=== PATIENT | male | born 1980 | race Caucasian/White ===

== ENCOUNTER 2021-02-06 21:09 | Emergency (ER) | payer BC ==
[~2021-02-06] VITALS: Ht 178 cm; Wt 72.0 kg
[2021-02-06] MEDS ORDERED: ALLO100T PO (21:30)
[2021-02-06] MEDS ORDERED: CARV6.25 PO (21:30)
[2021-02-06] MEDS ORDERED: ATOR20TA66 PO (21:30)
[2021-02-06] MEDS ORDERED: FOLI0.8C PO (21:30)
[2021-02-06] MEDS ORDERED: BUME0.5T5 PO (21:30)
[2021-02-06] MEDS ORDERED: OMEP10CA5 PO (21:30)
[2021-02-06] MEDS ORDERED: ASPI-999 PO (21:30)
[2021-02-06] MEDS ORDERED: POTA99TA21 PO (21:30)
[2021-02-06] MEDS ORDERED: AMLO-251 PO (21:30)
--- NOTE | 2021-02-06 21:31 | ED Abdominal Pain ---
General Stated Complaint: STOMACH PAIN Source of Information: Patient (LIMITED HISTORIAN) History of Present Illness Date Seen by Provider: Feb 06, 2021 Time Seen by Provider: 21:20 Initial Comments PT ARRIVES VIA POV FROM HOME C/O GENERALIZED ABDOMINAL PAIN X 1 MONTH 10 DAYS AGO, HE HAD NAUSEA/VOMITING, BUT NONE SINCE NO DIARRHEA NO URINARY SYMPTOMS NO FEVER STATES FOOD MAKES IT WORSE, NOT EATING IS BETTER STATES PAIN COMES AND GOES AND IS NOT PRESENT NOW STATES ABOUT A YEAR AGO, HE HAD SIMILAR PROBLEMS AND WAS TOLD "IT SOUNDED LIKE I HAD AN ULCER"--NO TESTS OF ANY KIND WERE DONE, PT WAS GIVEN RX FOR OMEPRAZOLE AT THAT TIME PT RESTARTED OMEPRAZOLE ABOUT A MONTH AGO AND IT HAS NOT HELPED. STATES UP UNTIL A MONTH AGO, "IT WAS THE BEST HE HAD FELT FOR YEARS"--WAS UP TO RUNNING 5 MILES A DAY, BUT NOT IN THE LAST MONTH HAS LOST 12 LBS IN THE LAST MONTH--WAS 170#, NOW WEIGHS 158# SYMPTOMS ARE NO DIFFERENT TODAY IN ANY WAY HAS NOT SOUGHT CARE UNTIL ANA MARIA MCKINLEY) PCP: NONE "JUST MOVED HERE 8 MONTHS AGO" FROM [place], LIVED IN [place] WITH HIS PARENTS PRIOR TO THAT. 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 [place] Allergies and Home Medications Allergies Coded Allergies: nifedipine (Verified Allergy, Unknown, 02/06/21) Home Medications Amlodipine Besylate 10 Mg Tablet, Unknown Dose PO DAILY, (Reported) Carvedilol 6.25 Mg Tablet, Unknown Dose PO BID, (Reported) Patient Home Medication List Home Medication List Reviewed: Yes Review of Systems Review of Systems Constitutional: see HPI; No chills, No diaphoresis, No dizziness, No fever; malaise, weight loss Respiratory: No Symptoms Reported; Denies Cough, Denies Shortness of Air Cardiovascular: No Symptoms Reported; Denies Chest Pain, Denies Edema, Denies Lightheadedness, Denies Palpitations, Denies Syncope Gastrointestinal: See HPI; Denies Abdomen Distended; Abdominal Pain; Denies Blood Streaked Stools, Denies Constipated, Denies Diarrhea; Nausea; Denies Rectal Bleeding; Vomiting Genitourinary: No Symptoms Reported Musculoskeletal: no symptoms reported; No back pain Skin: no symptoms reported Psychiatric/Neurological: No Symptoms Reported Endocrine: No Symptoms Reported Hematologic/Lymphatic: No Symptoms Reported Past [id number] Hx Past Med/Social Hx: Reviewed and Corrections made Patient Social History Alcohol Use: Past History Drug of Choice: THC TEEN Smoking Status: Current Everyday Smoker Type Used: Cigarettes Past Medical History Surgeries: Yes Abdominal, Vascular Surgery Respiratory: No Cardiac: 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, ILIACS & FEMORALS) High Cholesterol, Hypertension, Peripheral Vascular Neurological: No Genitourinary: Yes (WAS ON PERITONEAL AND HEMO DIALYSIS 3 YEARS AGO) Renal Failure Gastrointestinal: Yes ("BLOCKED AORTA" ) Pancreatitis Musculoskeletal: No Endocrine: No HEENT: No Cancer: No Psychosocial: No Integumentary: No Blood Disorders: Yes (FACTOR 5 LEIDEN) Family Medical History SOCIAL HISTORY: -ETOH--HISTORY OF DAILY USE--AT LEAST A 6 PACK/DAY, NONE SINCE 2017 -DRUGS--THC TEEN -SMOKES 1 1/2 PPD ADDITIONAL PAST MEDICAL/SURGICAL HISTORY: -2018--HAD SURGERY FOR "BLOCKED AORTA" AND PT STATES "THEY BLOCKED MY RENAL ARTERIES" AND PT HAD RENAL FAILURE, WAS ON PERIOTONEAL DIALYSIS FOR AWHILE, NO LONGER IS ON DIALYSIS--KIDNEY FUNCTION IMPROVED. HAD SURGERY TO PLACE PERITONEAL DIALYSIS SHUNT, AND THEN LATER HAD IT REMOVED, WAS ALSO ON HEMO DIALYSIS AT SOME POINT--HAD [facility] STATES HIS AORTA WAS "BLOCKED"-STATES HE HAS FACTOR 5 LEIDEN AND HAD A CLOT "AND SOME BLOCKAGE" IN HIS AORTA, AND HAS A STENT IN HIS AORTA--ALSO HAS AORTIC AND BILATERAL ILIAC AND FEMORAL STENTS HAD SOME PROCEDURES DONE AT [place], AND SOME DONE AT , AND SOME AT [facility] IN [place] Physical Exam Vital Signs Vital Signs - First Documented 02/06/21 21:20 Temp 37.2 Pulse 86 Resp 16 B/P (MAP) 202/131 (154) Pulse Ox 97 O2 Delivery Room Air Capillary Refill : Height/Weight/BMI Height: '" Weight: lbs. oz. kg; BMI Method: General Appearance: WD/WN, no apparent distress, thin, other (FLAT AFFECT. DOES NOT MAKE EYE CONTACT, KEEPS HEAD DOWN. WALKS UPRIGHT AND MOVES QUICKLY WITHOUT DIFFICULTY. DOES NOT APPEAR TO BE IN ANY DISCOMFORT OR DISTRESS. ) HEENT: PERRL/EOMI Neck: normal inspection Respiratory: normal breath sounds, no respiratory distress, no accessory muscle use Cardiovascular: regular rate, rhythm, no murmur Gastrointestinal: normal bowel sounds, soft, no organomegaly; No distended, No guarding, No rebound; tenderness (VERY MILD EPIGASTRIC TENDERNESS); No hernia, No mass Extremities: normal inspection, normal capillary refill Back: no CVA tenderness Neurologic/Psychiatric: transfer agent II-XII nml as tested, no motor/sensory deficits, alert, oriented x 3 Skin: normal color, warm/dry; No rash Progress/Results/Core Measures Results/Orders Lab Results Laboratory Tests Test 02/06/21 21:25 02/06/21 21:35 Range/Units Urine Color ORANGE Urine Clarity CLEAR Urine pH 6.0 5-9 Urine Specific [place] 1.025 H 1.016-1.022 Urine Protein TRACE H NEGATIVE Urine Glucose (UA) NEGATIVE NEGATIVE Urine Ketones 1+ H NEGATIVE Urine Nitrite NEGATIVE NEGATIVE Urine Bilirubin 2+ H NEGATIVE Urine Urobilinogen 1.0 < = 1.0 MG/DL Urine Leukocyte Esterase NEGATIVE NEGATIVE Urine RBC (Auto) NEGATIVE NEGATIVE Urine RBC NONE /HPF Urine WBC NONE /HPF Urine Squamous Epithelial Cells RARE /HPF Urine Crystals PRESENT H /LPF Urine Amorphous Sediment FEW BARRY URATES H /LPF Urine Bacteria TRACE /HPF Urine Casts NONE /LPF Urine Mucus NEGATIVE /LPF Urine Culture Indicated NO Urine Opiates Screen NEGATIVE NEGATIVE Urine Oxycodone Screen NEGATIVE NEGATIVE Urine Methadone Screen NEGATIVE NEGATIVE Urine Propoxyphene Screen NEGATIVE NEGATIVE Urine Barbiturates Screen NEGATIVE NEGATIVE Ur Tricyclic Antidepressants Screen NEGATIVE NEGATIVE Urine Phencyclidine Screen NEGATIVE NEGATIVE Urine Amphetamines Screen NEGATIVE NEGATIVE Urine Methamphetamines Screen NEGATIVE NEGATIVE Urine Benzodiazepines Screen NEGATIVE NEGATIVE Urine Cocaine Screen NEGATIVE NEGATIVE Urine Cannabinoids Screen NEGATIVE NEGATIVE White Blood Count 8.6 4.3-11.0 10^3/uL Red Blood Count 4.70 4.30-5.52 10^6/uL Hemoglobin 15.0 13.3-17.7 g/dL Hematocrit 43 40-54 % Mean Corpuscular Volume 91 80-99 fL Mean Corpuscular Hemoglobin 32 25-34 pg Mean Corpuscular Hemoglobin Concent 35 32-36 g/dL Red Cell Distribution Width 12.3 10.0-14.5 % Platelet Count 214 130-400 10^3/uL Mean Platelet Volume 10.5 9.0-12.2 fL Immature Granulocyte % (Auto) 0 % Neutrophils (%) (Auto) 81 H 42-75 % Lymphocytes (%) (Auto) 11 L 12-44 % Monocytes (%) (Auto) 5 0-12 % Eosinophils (%) (Auto) 2 0-10 % Basophils (%) (Auto) 0 0-10 % Neutrophils # (Auto) 7.0 1.8-7.8 10^3/uL Lymphocytes # (Auto) 0.9 L 1.0-4.0 10^3/uL Monocytes # (Auto) 0.4 0.0-1.0 10^3/uL Eosinophils # (Auto) 0.2 0.0-0.3 10^3/uL Basophils # (Auto) 0.0 0.0-0.1 10^3/uL Immature Granulocyte # (Auto) 0.0 0.0-0.1 10^3/uL Prothrombin Time 13.6 12.2-14.7 SEC INR Comment 1.0 0.8-1.4 Activated Partial Thromboplast Time 35 24-35 SEC Sodium Level 140 135-145 MMOL/L Potassium Level 3.4 L 3.6-5.0 MMOL/L Chloride Level 101 98-107 MMOL/L Carbon Dioxide Level 22 21-32 MMOL/L Anion Gap 17 H 5-14 MMOL/L Blood Urea Nitrogen 16 7-18 MG/DL Creatinine 1.30 0.60-1.30 MG/DL Estimat Glomerular Filtration Rate > 60 BUN/Creatinine Ratio 12 Glucose Level 106 H 70-105 MG/DL Calcium Level 11.1 H 8.5-10.1 MG/DL Corrected Calcium 10.8 H 8.5-10.1 MG/DL Magnesium Level 1.5 L 1.6-2.4 MG/DL Total Bilirubin 1.9 H 0.1-1.0 MG/DL Aspartate Amino Transf (AST/SGOT) 115 H 5-34 U/L Alanine Aminotransferase (ALT/SGPT) 126 H 0-55 U/L Alkaline Phosphatase 289 H 40-136 U/L Total Protein 7.4 6.4-8.2 GM/DL Albumin 4.4 3.2-4.5 GM/DL Amylase Level 220 H 25-125 U/L Lipase 767 H 8-78 U/L Serum Alcohol < 10 <10 MG/DL My Orders Orders - CARLOS LUGO DO Ed Iv/Invasive Line Start (02/06/21 21:35) Alcohol (02/06/21 21:35) Amylase (02/06/21 21:35) Cbc With Automated Diff (02/06/21 21:35) Comprehensive Metabolic Panel (02/06/21 21:35) Drug Screen Stat (Urine) (02/06/21 21:35) Lipase (02/06/21 21:35) Magnesium (02/06/21 21:35) Protime With Inr (02/06/21 21:35) Partial Thromboplastin Time (02/06/21 21:35) Ua Culture If Indicated (02/06/21 21:35) Ed Iv/Invasive Line Start (02/06/21 21:35) Lactated Ringers (Lr 1000 Ml Iv Solution (02/06/21 21:45) Pantoprazole Injection (Protonix Injecti (02/06/21 21:45) Ct Abdomen/Pelvis Wo (02/06/21 22:10) Acute Abd Series (02/06/21 22:10) Hydralazine Injection (Apresoline Inject (02/06/21 22:45) Fentanyl Inj (Sublimaze Injection) (02/06/21 23:45) Medications Given in ED Current Medications Medications Dose Ordered Sig/Mason Route Start Time Stop Time Status Last Admin Dose Admin Fentanyl Citrate 50 mcg ONCE ONCE IVP 02/06/21 23:45 02/06/21 23:46 DC 02/06/21 23:41 50 MCG Hydralazine HCl 10 mg ONCE ONCE IV 02/06/21 22:45 02/06/21 22:46 DC 02/06/21 22:51 10 MG Lactated Ringer's 1,000 ml @ 0 mls/hr Q0M ONCE IV 02/06/21 21:45 02/06/21 21:46 DC 02/06/21 21:46 0 MLS/HR Pantoprazole 40 mg ONCE ONCE IV 02/06/21 21:45 02/06/21 21:46 DC 02/06/21 21:46 40 MG Vital Signs/I&O 02/06/21 02/07/21 21:20 00:33 Temp 37.2 36.7 Pulse 86 77 Resp 16 18 B/P (MAP) 202/131 (154) 175/99 Pulse Ox 97 96 O2 Delivery Room Air Room Air 02/07/21 00:00 Intake Total 1000 ml Balance 1000 ml Progress Progress Note : Progress Note GIVEN IV FLUIDS AND PROTONIX, AND LATER FENTANYL FOR PAIN STATES HE HAS NOT TAKEN ANY OF HIS MEDICATIONS TODAY, BUT JUST BEFORE HE GOT HERE, HE TOOK HIS CARVEDILOL AND AMLODIPINE GAVE HYDRALAZINE FOR ELEVATED BLOOD PRESSURE--STATES HIS BLOOD PRESSURE IS "ALWAYS HIGH" MUCH LATER PT STATES HE HAS HAD PANCREATITIS IN THE PAST--3 YEARS AGO, HAD PANCREATITIS AND THAT IS HOW HIS "BLOCKED AORTA" WAS DISCOVERED. PT WAS DRINKING HEAVILY AT THAT TIME Diagnostic Imaging Comments ABDOMEN XRAYS--NO ACUTE PROCESS, STENTS IN AORTA, BILATERAL ILIACS AND FEMORALS, PENDING RADIOLOGIST REVIEW CT ABDOMEN/PELVIS--MASS LIKE ENLARGEMENT OF PANCREATIC HEAD-UP TO 5 CM, PANCREATIC DUCTAL DILATION UP TO 6 MM AND PANCREATIC CALCIFICATIONS. AORTIC AND ILIAC STENTS IN PLACE. PER [facility] VIA FAX AT 2310 Reviewed: Reviewed by Me Departure Communication (Admissions) 2315--SPOKE WITH DR. BUSTILLOS, HOSPITALIST, ACCEPTS PT FOR ADMIT 2316--SPOKE WITH DR. GALVAN, SURGEON, ADVISES TRANSFER TO 2325--CALLING [facility] IN [place], PT PREFERENCE. WILL CALL BACK [phone] AND 2337--[facility] CALLED BACK, THEY ARE ON FULL DIVERSION AT THIS TIME AND CANNOT ACCEPT PT 2339--CALLED , WHICH PT IS ALSO AGREEABLE TO, THEY WILL CALL BACK [phone]-- CALLED BACK, DR. BLAKE HAS ACCEPTED PT FOR ADMIT. WILL CALL BACK WITH BED ASSIGNMENT Impression Primary Impression: Pancreatitis Additional Impressions: Elevated liver enzymes Hypertensive urgency Pancreatic mass Disposition: XFER SHT-TRM HOSP Condition: Stable Transfer Transfer Reason: Exceeds level of care Transfer Facility: Method of Transfer: EMS Departure-Patient Inst. Referrals: NO,LOCAL PHYSICIAN (PCP/Family) Primary Care Physician CARLOS LUGO DO Feb 06, 2021 21:31
[2021-02-06 21:42] LABS: BASOPHILS % (AUTO) 0 % (0-10); EOSINOPHILS # (AUTO) 0.2 10^3/uL (0.0-0.3); EOSINOPHILS % (AUTO) 2 % (0-10); HEMATOCRIT 43 % (40-54); LYMPHOCYTES # (AUTO) 0.9 10^3/uL (1.0-4.0); LYMPHOCYTES % (AUTO) 11 % (12-44); MEAN CORPUSCULAR HEMOGLOBIN 32 pg (25-34); MEAN CORPUSCULAR HGB CONC 35 g/dL (32-36); MEAN CORPUSCULAR VOLUME 91 fL (80-99); MEAN PLATELET VOLUME 10.5 fL (9.0-12.2); MONOCYTES # (AUTO) 0.4 10^3/uL (0.0-1.0); MONOCYTES % (AUTO) 5 % (0-12); NEUTROPHILS % (AUTO) 81 % (42-75); PLATELET COUNT 214 10^3/uL (130-400); WHITE BLOOD COUNT 8.6 10^3/uL (4.3-11.0)
[2021-02-06 21:42] LABS: CLARITY,URINE CLEAR; COLOR,URINE ORANGE; GLUCOSE, URINE (UA) NEGATIVE (NEGATIVE); KETONES,URINE 1+ (NEGATIVE); LEUKOCYTE ESTERASE ,URINE NEGATIVE (NEGATIVE); NITRITE,URINE NEGATIVE (NEGATIVE); PROTEIN,URINE TRACE (NEGATIVE)
[2021-02-06] MEDS ORDERED: PANTOPRAZOLE 40 MG (PROTONIX) VIAL IV ONE (21:45)
[2021-02-06] MEDS ORDERED: LACTATED RINGERS 1,000 ML IV ONE (21:45)
[2021-02-06 21:46] LABS: BILIRUBIN,URINE 2+ (NEGATIVE)
[2021-02-06 21:49] LABS: BACTERIA,URINE TRACE /HPF; SQUAMOUS EPITHELIAL CELL,UR RARE /HPF
[2021-02-06 21:50] LABS: AMORPHOUS SEDIMENT,UR FEW AMOR URATES /LPF
[2021-02-06 21:52] LABS: AMPHETAMINE SCREEN, URINE NEGATIVE (NEGATIVE); BENZODIAZEPINES SCREEN URINE NEGATIVE (NEGATIVE); CANNABINOID SCREEN, URINE NEGATIVE (NEGATIVE); COCAINE SCREEN URINE NEGATIVE (NEGATIVE); METHAMPHETAMINE SCREEN URINE S NEGATIVE (NEGATIVE)
[2021-02-06 21:53] LABS: BARBITURATE SCREEN URINE NEGATIVE (NEGATIVE); METHADONE STAT NEGATIVE (NEGATIVE); OPIATE SCREEN URINE NEGATIVE (NEGATIVE); OXYCODONE STAT NEGATIVE (NEGATIVE); PROPOXYPHENE STAT NEGATIVE (NEGATIVE); TRICYCLIC ANTIDEPRESSANTS SCRE NEGATIVE (NEGATIVE)
[2021-02-06 21:54] LABS: PROTHROMBIN TIME PATIENT 13.6 SEC (12.2-14.7)
[2021-02-06 22:04] LABS: ALANINE AMINOTRANSFERASE 126 U/L (0-55); ALBUMIN 4.4 GM/DL (3.2-4.5); ALKALINE PHOSPHATASE 289 U/L (40-136); AMYLASE 220 U/L (25-125); BILIRUBIN,TOTAL 1.9 MG/DL (0.1-1.0); BUN/CREATININE RATIO 12; CALCIUM 11.1 MG/DL (8.5-10.1); CARBON DIOXIDE 22 MMOL/L (21-32); CHLORIDE 101 MMOL/L (98-107); GFR ESTIMATED > 60; GLUCOSE 106 MG/DL (70-105); LIPASE 767 U/L (8-78); MAGNESIUM 1.5 MG/DL (1.6-2.4); POTASSIUM 3.4 MMOL/L (3.6-5.0); SODIUM 140 MMOL/L (135-145); TOTAL PROTEIN 7.4 GM/DL (6.4-8.2)
[2021-02-06] MEDS ORDERED: hydrALAZINE (APESOLINE) 20 MG/ML VIAL IV ONE (22:45)
[2021-02-06] MEDS ORDERED: fentaNYL INJ 100 MCG/2 ML AMP IVP ONE (23:45)
[2021-02-07 00:33] VITALS: BP 175/99
--- NOTE | 2021-02-07 06:01 | Diagnostic Imaging Report ---
PROCEDURE: CT abdomen and pelvis without contrast. TECHNIQUE: Multiple contiguous axial images were obtained through the abdomen and pelvis without the use of intravenous contrast. Auto Exposure Controls were utilized during the CT exam to meet ALARA standards for radiation dose reduction. INDICATION: Abdominal pain COMPARISON: 12/19/2017 Unenhanced images of the liver and spleen reveal no focal abnormalities. No gallbladder inflammation is seen. There is enlargement of the pancreatic head reaching approximately 5 cm in diameter. There has been development of calcification also present within the pancreatic head with moderate pancreatic ductal dilatation. There does appear to be increased density surrounding the pancreatic head which could be due to edema or inflammation. No definite adrenal gland lesion is identified. Evaluation of the kidneys is somewhat limited without intravenous contrast, however, there does appear to be increasing mild to moderate left hydronephrosis. Abdominal aorta has been treated with bifurcated aortoiliac stent. No free fluid is seen within the abdomen or pelvis. No definite pathologically enlarged adenopathy. IMPRESSION: Enlargement of the pancreatic head reaching 5 cm in diameter with associated calcifications. There is also evidence of surrounding edema and/or inflammation at the level of the pancreatic head and findings may be related to pancreatitis although pancreatic neoplasm is not excluded. Correlation with laboratory values and possible endoscopic assessment would be of use. Dictated by: Dictated on workstation # [id number]
--- NOTE | 2021-02-07 06:05 | Diagnostic Imaging Report ---
INDICATION: Abdominal pain Supine and upright images of the abdomen are obtained with single view of the chest. Comparison is made to chest x-ray of 12/26/2017. There has been improved aeration of the lungs. No pneumothorax or infiltrate is seen. Bifurcated aortoiliac stent is seen throughout the abdomen with external iliac stents seen bilaterally. Bowel gas pattern is unremarkable. There are calcifications projecting over the head of the pancreas. No pneumoperitoneum or pneumatosis is seen. IMPRESSION: No definite acute abnormalities identified. There is treated abdominal aortic aneurysm. Calcifications projecting over the head of the pancreas may reflect chronic pancreatitis although laboratory correlation would be useful. Dictated by: Dictated on workstation # [id number]
== END 2021-02-07 00:36 | disposition short-term general hospital (02) ==
LOC: ER 21:12
DX: K85.90 Acute pancreatitis without necrosis or infection, unspecified (principal); K86.9 Disease of pancreas, unspecified; I16.0 Hypertensive urgency; R74.8 Abnormal levels of other serum enzymes; I10 Essential (primary) hypertension; F17.210 Nicotine dependence, cigarettes, uncomplicated; Z79.899 Other long term (current) drug therapy; Z88.8 Allergy status to other drugs, medicaments and biological substances
CPT/HCPCS: 74022; 74176; 80053; 80306; 81000; 82150; 83690; 83735; 85025; 85610; 85730; 99285; G0480; 36415; 80320